=== PATIENT | female | born 1990 | race Caucasian/White ===

== ENCOUNTER 2020-02-19 15:58 | Outpatient (REF) | payer OTHER, SELFPAY ==
--- NOTE | 2020-02-19 16:06 | XR_ITS ---
EXAMINATION: CHEST 2 VIEWS CLINICAL INFORMATION: Cough, pain. COMPARISON: October 25, 2018. TECHNIQUE: PA and lateral views of the chest were obtained. FINDINGS: The cardiac silhouette is not enlarged. The mediastinal and hilar contours are unremarkable. There are neither pleural effusions nor pneumothoraces. There are no consolidations. The osseous structures are stable. XR/XR chest 2V IMPRESSION: No evidence for acute disease.
== END 2020-02-19 15:59 | disposition home or self-care (01) ==
LOC: HO.XRAY 15:58
PROVIDERS: Absent Provider Student in an Organized Health Care Education/Training Program; PCP Student in an Organized Health Care Education/Training Program; Visit Provider Registered Nurse
DX: M54.5 Low back pain (principal); R05 Cough; R52 Pain, unspecified
CPT/HCPCS: 71046

== ENCOUNTER 2020-03-11 10:36 | Outpatient (REF) | payer OTHER, SELFPAY ==
--- NOTE | 2020-03-11 | PFT_ITS ---
FLOWS: FEV1 of 88% of predicted at 3.06 L. FVC 108% of predicted at 4.38 L. FEV1 to FVC ratio of 0.70. Positive bronchodilator response. LUNG VOLUMES: Total lung capacity 128% of predicted at 6.87 L. Residual volume 167% of predicted at 2.41 L. Slow vital capacity 114% of predicted at 4.46 L. Expiratory reserve volume 109% of predicted at 1.65 L. Diffusion capacity is normal. IMPRESSION: Moderate reversible obstructive ventilatory defect with positive bronchodilator response. Increased total lung capacity suggests hyperinflation. Increased residual volume suggests air trapping. This test results can be observed in a patient with asthma. Clinical correlation is advised. MD YAHIR Snatamaria/MODL / [id number] MTDD
== END 2020-03-11 10:37 | disposition home or self-care (01) ==
LOC: HO.RESP 10:36
PROVIDERS: PCP Student in an Organized Health Care Education/Training Program; Visit Provider Internal Medicine
DX: R05 Cough (principal); R06.02 Shortness of breath
CPT/HCPCS: 71046; 94060; 94727; 94729

== ENCOUNTER 2020-03-11 12:24 | Outpatient (REF) | payer OTHER, SELFPAY ==
--- NOTE | 2020-03-11 12:29 | XR_ITS ---
EXAMINATION: XR CHEST CLINICAL INFORMATION: Cough and shortness of breath COMPARISON: Previous chest x-ray most recent 02/19/2020 TECHNIQUE: 2 views of the chest were obtained. FINDINGS: No significant abnormality is noted involving the heart, lungs, mediastinum, bony thorax or soft tissues. XR/XR chest 2V IMPRESSION: Unremarkable examination.
== END 2020-03-11 12:25 | disposition home or self-care (01) ==
LOC: HO.XRAY 12:24
PROVIDERS: Visit Provider Internal Medicine
DX: R05 Cough (principal); R06.02 Shortness of breath
CPT/HCPCS: 71046

== ENCOUNTER 2020-05-16 11:09 | Emergency (ER) | payer OTHER, SELFPAY ==
[2020-05-16 11:21] VITALS: BP 114/56; PULSE 84; RESP 18; TEMP 36.6; O2SAT 97; BMI 27.1
--- NOTE | 2020-05-16 11:35 | ED_ITS ---
HPI - General Adult General Chief complaint: General Medical Stated complaint: flank pain Time Seen by Provider: 05/16/20 11:26 History of Present Illness HPI narrative: Patient complains of right-sided back pain worse with movement for 2 or 3 days, she does not recall any injury, no lifting injury she has no numbness weakness or tingling, she has no frequency of urination or burning with urination no incontinence, pain does not radiate no fever chills or nausea, no chest pain or abdominal pain Related Data Previous Rx's Medication Instructions Recorded cyclobenzaprine 5 mg PO TID PRN #10 tab 05/16/20 ibuprofen 600 mg PO Q6H PRN #20 tab 05/16/20 Allergies Allergy/AdvReac Type Severity Reaction Status Date / Time SEAFOOD Allergy Intermediate RASH Uncoded 11/02/19 17:41 Review of Systems Review of Systems: Positive his right-sided back pain Negatives are no fever no chills no dizziness no weakness no confusion no headache no neck pain no chest pain or shortness of breath no abdominal pain no dysuria no frequency no incontinencce, no leg swelling no rash no numbness or weakness PMFSH Past Medical History Source: nursing notes reviewed Social History Social History Advance Directives: No Advance Directives Information Provided: No Physical Exam Vital Signs: Vital Signs: Last Vital Signs Temp 97.9 F 05/16/20 12:00 Pulse 86 05/16/20 12:00 Resp 16 05/16/20 12:00 BP 114/68 05/16/20 12:00 Pulse Ox 97 05/16/20 11:21 Body Mass Index 27.1 General appearance no distress comfortable, relaxed and cooperative and O x3 Head is normocephalic atraumatic Neck is supple and nontender The chest is clear to auscultation with symmetric equal breath sounds No chest wall tenderness The heart no murmur The abdomen soft nontender no rebound no guarding, there is no CVA tenderness The back there is right sided upper lumbar tenderness, there is no CVA tenderness, there is no focal bony tenderness, pain is reproduced with movement, skin is normal no redness rash or wound Extremities full range of motion x4 no edema no calf tenderness or swelling Skin no rash Neuro no motor weakness, no motor sensory deficit Course Course Course Narrative: UA which was sent from triage is checked no evidence of infection and patient has no signs or symptoms of infection and she is not Exam is consistent with musculoskeletal pain in the right side of the back and she is treated for that, no red flags no fever no numbness or weakness no radiation of the pain and no changes to bowel or bladder Medical Decision Making Lab Data Lab results reviewed: Yes I reviewed the patient's lab results. Labs: Lab Results 05/16/20 05/16/20 Range/Units 12:18 12:18 Urine Color YELLOW Urine Appearance HAZY Urine pH 6.0 (5.0-8.0) Ur Specific [place] >= 1.030 H (1.005-1.025) Urine Protein TRACE (NEG-TRACE) MG/DL Urine Glucose (UA) NEG (NEG) MG/DL Urine Ketones NEG (NEG) MG/DL Urine Blood 3+ H (NEG) Urine Nitrite NEG (NEG) Ur Leukocyte Esterase NEG (NEG) Urine RBC 5-9 H (0) /HPF Urine WBC 1-4 (0-4) /HPF Ur Squamous Epith Cells 1+ /LPF Ur Renal Epithelial Cell 1+ /LPF Urine Bacteria 1+ /LPF Urine Mucus 2+ /LPF Urine Test NEGATIVE (NEGATIVE) Discharge Plan Discharge Clinical Impression: Back pain Patient Disposition: Home, Self-Care Additional Instructions: Your urine test was normal no sign of infection and your test was neg ative Your exam was consistent with strained muscles in back Follow with primary care doctor or chiropractor as needed Return any time for any worse condition or any concerns Prescriptions: New ibuprofen 600 mg tablet 600 mg PO Q6H PRN (Reason: pain) Qty: 20 RF: 0 cyclobenzaprine 5 mg tablet 5 mg PO TID PRN (Reason: muscle spasm) Qty: 10 RF: 0 Stand Alone Forms: Work/School Release Interventions: ED Discharge Assessment Last Done: 05/16/20 13:58 Discharge Date/Time: 05/16/20 13:59
[2020-05-16 12:00] VITALS: BP 114/68; PULSE 86; RESP 16; TEMP 36.6
[2020-05-16 12:29] LABS: Glucose Urine UA NEG (NEG); Leukocyte Esterase Urine NEG (NEG); Nitrite Urine NEG (NEG); Specific Gravity - Urine >= 1.030 (1.005-1.025); Urine Blood 3+ (NEG); Urine Ketones NEG (NEG); Urine Protein TRACE MG/DL (NEG-TRACE)
[2020-05-16 12:31] LABS: Appearance Urine HAZY; Color Urine YELLOW; UPreg QC Valid YES; Urine Pregnancy NEGATIVE (NEGATIVE)
[2020-05-16 12:40] LABS: Bacteria Urine 1+ /LPF; Mucus Urine 2+ /LPF; Renal Epithelial Cells Urine 1+ /LPF; Squamous Epithelial Cell Urine 1+ /LPF
[2020-05-16] MEDS: Ketorolac Tromethamine 30 MG/ML VIAL IM (13:57)
== END 2020-05-16 13:59 | disposition home or self-care (01) ==
PROVIDERS: Physician Assistant Medical; Emergency Provider Emergency Medicine Emergency Medical Services; PCP Student in an Organized Health Care Education/Training Program
DX: M54.9 Dorsalgia, unspecified (principal)
CPT/HCPCS: 81001; 81025; 96372; 99283; 99284; J1885

== ENCOUNTER 2020-09-09 08:47 | Outpatient (REF) | payer OTHER, SELFPAY ==
--- NOTE | ~2020-09-09 | US_ITS ---
EXAMINATION: US ABDOMEN COMPLETE CLINICAL INFORMATION: Intermittent right upper quadrant pain. COMPARISON: CT abdomen pelvis 04/10/2019 TECHNIQUE: Real-time imaging of the abdominal viscera. FINDINGS: PANCREAS: Normal. ABDOMINAL AORTA: The proximal, mid, and distal segments are normal in caliber. INFERIOR VENA CAVA: Visualized portions are normal. LIVER: Normal. The liver is normal in size. The liver contour is normal. Parenchymal echogenicity is normal. No focal hepatic lesion. There is no intrahepatic biliary duct dilatation seen. GALLBLADDER: Normal. The gallbladder is physiologically distended without evidence of stones, sludge, polyps, wall thickening or pericholecystic fluid. COMMON BILE DUCT: Normal in caliber measuring 0.22 cm in diameter. RIGHT KIDNEY: Normal No renal calculi or focal parenchymal lesions. The kidney measures 12.7 cm in maximum dimension. LEFT KIDNEY: Normal. No hydronephrosis. No renal calculi or focal parenchymal lesions. The kidney measures 12.0 cm in maximum dimension. SPLEEN: Normal. The spleen measures 11.3 cm in maximum dimension. FREE FLUID: None. US/US abdomen complete IMPRESSION: Unremarkable exam
== END 2020-09-09 08:48 | disposition home or self-care (01) ==
LOC: HO.HMGCX 08:47
PROVIDERS: PCP Student in an Organized Health Care Education/Training Program; Visit Provider Internal Medicine
DX: R10.11 Right upper quadrant pain (principal)
CPT/HCPCS: 76700